=== PATIENT | female | born 1955 | race Caucasian/White ===

== ENCOUNTER → 2017-02-14 | Outpatient (CLI) | payer OTHER ==
[~2017-02-14] MED LIST: ALBU18002 INH; ALBU2SYP9 INH; BETA0.053 TOP; BIOT1CAP3 PO; CALC-354 PO; CETI10TA84 PO; CHOL100010 PO; CLON1TAB3 PO; CMD/25 PO; LOSA100T65 PO; METO25TA56 PO; MULT-730 PO; ONDA4TAB46 PO; PANT40TA PO; POTA10CA28 PO; RIBO1TAB4 PO; TRAM-10 PO
[2017-02-14 18:00] LABS: BASO % 0.5 %; BASO ABS # 0.03 K/uL (0-0.2); COMPLETE YES; EOS % 1.5 %; HEMATOCRIT 40.4 % (37-47); IG% 0.2 %; MEAN CELL VOLUME 96.2 fL (80-100); MEAN CORPUSCULAR HEMOGLOBIN 33.3 pg (25-34); MEAN CORPUSCULAR HGB CONC 34.7 g/dl (32-36); MEAN PLATELET VOLUME 10.5 fL (7.4-10.4); MONO % 11.9 %; NEUT % 43.9 %; PLATELET COUNT 281 K/uL (130-400); WHITE BLOOD COUNT 6.66 K/uL (4.8-10.8)
== END | disposition home or self-care (01) ==
LOC: C.LABMFLN 07:39
PROVIDERS: ATTEND Internal Medicine Cardiovascular Disease
DX: Z79.01 Long term (current) use of anticoagulants (principal)

== ENCOUNTER → 2017-04-02 | Outpatient (CLI) | payer OTHER ==
--- NOTE | 2017-04-04 08:21 | MAMMOGRAPHY REPORT ---
BILATERAL DIGITAL SCREENING MAMMOGRAM TOMOSYNTHESIS WITH CAD: 04/02/2017 CLINICAL HISTORY: Routine screening. Patient has no complaints. TECHNIQUE: Breast tomosynthesis in addition to standard 2D mammography was performed. Current study was also evaluated with a Computer Aided Detection (CAD) system. COMPARISON: Comparison is made to exams dated: 03/31/2016 mammogram, 03/30/2015 mammogram, 03/26/2014 philip mogram, and 03/24/2013 mammogram - [facility]. BREAST COMPOSITION: There are scattered areas of fibroglandular density in both breasts. FINDINGS: There is a grouping of linear microcalcifications in the lower inner quadrant of the right breast, for which additional spot magnification views are recommended. A lobulated, partially circumscribed, 8 mm mass in the anterior left breast has been present on prior mammograms dating back to at least 03/09/2010 and does not appear significantly changed in size, mos t likely a benign cyst or fibroadenoma. No other suspicious mass, architectural distortion or cluster of microcalcifications is seen. IMPRESSION: ACR BI-RADS CATEGORY 0: INCOMPLETE EVALUATION: NEED ADDITIONAL IMAGING EVALUATION The linear microcalcifications in the lower inner right breast need additional evaluation. The patient will be called to schedule an appointment. Approximately 10% of breast cancers are not detected with mammography. A negative mammographic report should not delay biopsy if a clinically suggestive mass is present. Radha Horner M.D. ay/:04/03/2017 17:54:39 [employer] Manager: Gabby EDWARD(Garett)(Leslie), [facility] letter sent: Addl Imaging 0 BI-RADS Code: ACR BI-RADS Category 0: Incomplete Evaluation: Need Additional Imaging Evaluation
== END | disposition home or self-care (01) ==
LOC: C.MAMM 16:13
PROVIDERS: ATTEND Family Medicine
DX: Z12.31 Encounter for screening mammogram for malignant neoplasm of breast (principal); R92.0 Mammographic microcalcification found on diagnostic imaging of breast

== ENCOUNTER → 2017-04-10 | Outpatient (CLI) | payer OTHER ==
[2017-04-10 17:45] LABS: BASO % 0.4 %; BASO ABS # 0.03 K/uL (0-0.2); COMPLETE YES; EOS % 0.7 %; HEMATOCRIT 43.6 % (37-47); IG% 0.1 %; LYMPH % 39.6 %; LYMPH ABS # 2.95 K/uL (1.2-3.4); MEAN CELL VOLUME 97.1 fL (80-100); MEAN CORPUSCULAR HEMOGLOBIN 32.7 pg (25-34); MEAN CORPUSCULAR HGB CONC 33.7 g/dl (32-36); MEAN PLATELET VOLUME 10.3 fL (7.4-10.4); MONO % 10.1 %; NEUT % 49.1 %; PLATELET COUNT 268 K/uL (130-400); RED BLOOD COUNT 4.49 M/uL (4.2-5.4); WHITE BLOOD COUNT 7.45 K/uL (4.8-10.8)
[2017-04-10 18:06] LABS: BLOOD UREA NITROGEN 17 mg/dl (7-18); BUN/CREATININE RATIO 14.3 (10-20); CALCIUM 9.5 mg/dl (8.5-10.1); CARBON DIOXIDE 30 mmol/L (21-32); CHLORIDE 105 mmol/L (98-107); GLUCOSE 81 mg/dl (70-99); MAGNESIUM 2.3 mg/dl (1.8-2.4); PHOSPHORUS 3.3 mg/dl (2.5-4.9); POTASSIUM 4.1 mmol/L (3.5-5.1); SODIUM 142 mmol/L (136-145)
== END | disposition home or self-care (01) ==
LOC: C.LABMFLN 15:25
PROVIDERS: ATTEND Family Medicine
DX: R25.2 Cramp and spasm (principal)

== ENCOUNTER → 2017-04-12 | Outpatient (CLI) | payer OTHER ==
--- NOTE | 2017-04-12 13:39 | MAMMOGRAPHY REPORT ---
UNILATERAL RIGHT DIGITAL DIAGNOSTIC MAMMOGRAM: 04/12/2017 CLINICAL HISTORY: Callback from screening mammogram for right breast calcifications. TECHNIQUE: Spot magnification right cc and ML views were obtained. COMPARISON: Comparison is made to exams dated: 04/02/2017 mammogram, 03/31/2016 mammogram, 03/30/2015 ma mmogram, 03/26/2014 mammogram, and 03/24/2013 mammogram - [facility]. BREAST COMPOSITION: There are scattered areas of fibroglandular density in the right breast. FINDINGS: Spot magnification views of the right breast demonstrate a 2.2 cm group of calcifications i n the right medial breast at approximately 3:00. The calcifications are coarse heterogeneous and are linear in distribution. While these could represent dystrophic calcifications, the calcifications a re indeterminate and stereotactic biopsy is recommended for further evaluation. IMPRESSION: ACR BI-RADS CATEGORY 4: SUSPICIOUS Grouped coarse heterogeneous calcifications in a linear distribution in the right 3:00 breast. The c alcifications are indeterminate and stereotactic biopsy is recommended for further evaluation. A phone call was made to the physician's office to confirm faxed results were received. The patient has been verbally notified of the results. She tent[facility] scheduled the biopsy [facility] The patient reports she is on Coumadin for atrial fibrillation; I will leave it up to the patient's prescribing physician if she can safely discontinue Coumadin prior to the procedure. Approximately 10% of breast cancers are not detected with mammography. A negative mammographic report should not delay biopsy if a clinically suggestive mass is present. Olga Up M.D. ah/:04/12/2017 11:20:57 Ramp Service Agent: Alisha KOHLI)(Leslie), [facility] letter sent: Abnormal 4/5 BI-RADS Code: ACR BI-RADS Category 4: Suspicious
== END | disposition home or self-care (01) ==
LOC: C.MAMM 10:55
PROVIDERS: ATTEND Family Medicine
DX: R92.1 Mammographic calcification found on diagnostic imaging of breast (principal); R92.0 Mammographic microcalcification found on diagnostic imaging of breast

== ENCOUNTER → 2017-04-12 | Outpatient (CLI) | payer OTHER | END | disposition home or self-care (01) | LOC: C.LAB1850 16:18 | PROVIDERS: ATTEND Family Medicine | DX: R11.0 Nausea (principal); R10.11 Right upper quadrant pain ==

== ENCOUNTER → 2017-04-17 | Outpatient (CLI) | payer OTHER ==
--- NOTE | 2017-04-17 08:28 | DIAGNOSTIC IMAGING REPORT ---
ULTRASOUND RIGHT UPPER QUADRANT ABDOMEN CLINICAL HISTORY: Nausea. Right upper quadrant abdominal pain. COMPARISON STUDY: Abdominal CT dated 05/13/2013. TECHNIQUE: Real-time, grayscale, and color flow sonography of the right upper quadrant of the abdomen was performed. Images are reviewed in the transverse and longitudinal planes. FINDINGS: Liver: The liver is top normal in size and demonstrates heterogeneously increased echotexture consistent with severe hepatic steatosis. There is no intrahepatic biliary ductal dilatation. The main portal vein is patent. Gallbladder: The gallbladder is surgically absent. The common bile duct measures up to 0.6 cm in diameter. Pancreas: Visualized portions of the pancreatic head and body are normal in appearance. Right kidney: Survey images of the right kidney demonstrate cortical atrophy. There is no hydronephrosis. Ascites: None. IMPRESSION: 1. No acute sonographic abnormality is identified. The gallbladder is surgically absent. 2. Severe hepatic steatosis. 3. The right kidney is atrophic. Electronically signed by: Jb Jacobo M.D. 04/17/2017 8:27 AM Dictated Date/Time: 04/17/2017 8:25 AM
== END | disposition home or self-care (01) ==
LOC: C.ULTR 07:49
PROVIDERS: ATTEND Registered Nurse
DX: R11.0 Nausea (principal); Z90.49 Acquired absence of other specified parts of digestive tract; R10.11 Right upper quadrant pain; K76.0 Fatty (change of) liver, not elsewhere classified

== ENCOUNTER → 2017-04-25 | Outpatient (CLI) | payer OTHER ==
--- NOTE | 2017-04-25 08:43 | Discharge Instructions ---
Discharge Instructions Procedure Procedure Date: Apr 25, 2017. Reason for visit: Right Calcifications. Discharge Discharge Date: Apr 25, 2017. Discharge Diagnosis: post right breast stereotactic guided biopsy Instructions Activity Recommendations: Additional Limitations (see below) Return to School/Work: no limitations Recommended Home Diet: No Limitations Provider Instructions: ACTIVITY RECOMMENDATIONS: * No lifting, pushing, pulling or exercising the affected side for three days. RETURN TO SCHOOL/WORK: * You may return to work/school after the procedure, but do not perform any strenuous activities for 24 to 48 hours. MEDICATIONS: * Tylenol (two 325 mg) every four to six hours if needed for mild pain (if not allergic to Tylenol). DIET: * Resume previous diet. SPECIAL CARE INSTRUCTIONS: * Keep biopsy site dry for 24 hours. May shower after 24 hours, but do not soak (bathe) incision. * May remove Tegaderm (plastic patch) tomorrow AFTER showering. * Leave the steri-strips on for one week. Allow the steri-strips to fall off by themselves. If not off after one week, you may remove them. You may place a Bandaid crosswise over the strips, if desired. * Apply ice 10 minutes on and 10 minutes off as needed. * Wear a bra at bedtime to sleep more comfortably for 2-3 days. * Your referring physician should have the results after approximately 5 to 7 business days. * Call for unusual bleeding, fever, drainage, etc or if you have any questions call [phone] during normal business hours or after hours call Dr Horner, . FOLLOW UP VISIT: Follow-up with Referring Physician as scheduled. Allergies Coded Allergies: Calcium Channel Blockers (Unverified Allergy, Severe, SWELLING, 07/27/16) Aspirin (Verified Allergy, Unknown, RASH, 07/27/16) Cephalexin (Verified Allergy, Unknown, URTICARIA, 07/27/16) Ciprofloxacin (Verified Allergy, Unknown, RASH, 07/27/16) Cyclobenzaprine (Verified Allergy, Unknown, CHEST PAIN, EDEMA, 07/27/16) Diltiazem (Verified Allergy, Unknown, 07/27/16) Ferrous Sulfate (Verified Allergy, Unknown, STOMACH CRAMPS, 07/27/16) Fish Oil (Verified Allergy, Unknown, NAUSEA, VOMITING STOMACH CRAMPS, 07/27) Flunisolide (Verified Allergy, Unknown, 07/27/16) Furosemide (Verified Allergy, Unknown, 07/27/16) Gabapentin (Verified Allergy, Unknown, PALPITATIONS, DIZZINESS, EDEMA, SOB , NAUSEA, 07/27/16) Hydrochlorothiazide (Verified Allergy, Unknown, RASH, 07/27/16) Hyoscyamine (Verified Allergy, Unknown, 07/27/16) Iodinated Contrast Media (Verified Allergy, Unknown, CATH DYE?, 07/27/16) Iron (Verified Allergy, Unknown, NAUSEA, VOMITING, STOMACH CRAMPS, 07/27/16 ) Lisinopril (Verified Allergy, Unknown, COUGH, SOB, 07/27/16) Metaxalone (Verified Allergy, Unknown, SEVERE NAUSEA AND VOMITING, 07/27/16 ) Milk (Verified Allergy, Unknown, LACTOSE INTOLERANCE, 07/27/16) Milnacipran (Verified Allergy, Unknown, INCREASED HEART RATE, 07/27/16) Nickel (Verified Allergy, Unknown, UNKNOWN, 07/27/16) Propranolol (Verified Allergy, Unknown, 07/27/16) Shellfish (Verified Allergy, Unknown, TONGUE SWELLS, 07/27/16) Sulfamethoxazole w/Trimethoprim (Verified Allergy, Unknown, BURNING SKIN, SOB, COUGH, ITCHING, 07/27/16) Sumatriptan (Verified Allergy, Unknown, CHEST PAIN, DIZZINESS, 07/27/16) Verapamil (Verified Allergy, Unknown, 07/27/16) Valdecoxib (Verified Adverse Reaction, Intermediate, heart raced, short of breath, 07/27/16) Ibuprofen (Verified Adverse Reaction, Mild, STOMACH UPSET- TAKES MOBIC AT HOME, 07/27/16) Uncoded Allergies: ADHESIVE TAPE (Allergy, Unknown, SKIN BLISTERS, 04/20/14) AROBID INHALER (Allergy, Unknown, TERRIBLE TASTE IN MOUTH, 10/05/15) BERELAN PM (Allergy, Unknown, EDEMA, SOB, DIZZY, 10/05/15) CLINDOMYCIN (Allergy, Unknown, RASH, 04/20/14) CONTRAST MEDIA (Allergy, Unknown, RASH, 04/20/14) FEATHERS (Allergy, Unknown, RASH, 10/05/15) LORCET HD (Allergy, Unknown, HEART RATE DROPPED, 04/20/14) NITROGLYCERIN SL (Allergy, Unknown, HEART RATE DROPPED, FELL DOWN, DIZZINESS, 04/20/14) SAVEOLA (Allergy, Unknown, HYPER, 10/05/15) Ricky Dejesus Recommendations: Call your doctor if: * Temperature above 101 degrees * Pain not relieved by pain medicine ordered * There is increased drainage or redness from any incision * You have any unanswered questions or concerns. Your Doctors Instructions noted above were prepared by provider Radha Horner. Patient Signature Section: Patient Instructions Signature Page Shanice Lynn Patient (or Guardian) Signature/Date: I have read and understand the instructions given to me by my caregivers. Caregiver/RN/Doctor Signature/Date: The above-named patient and/or guardian has received patient instructions on this date. + Original Patient Signature Page (only) stays with chart. Please make copy for patient.
--- NOTE | 2017-04-25 12:34 | MAMMOGRAPHY REPORT ---
UNILATERAL RIGHT DIGITAL DIAGNOSTIC MAMMOGRAM: 04/25/2017 CLINICAL HISTORY: Status post right breast stereotactic guided biopsy of linear microcalcifications i n the 3:00 breast. Please refer to the report from right breast stereotactic guided biopsy performed at the same time fo r full detail. IMPRESSION: POST PROCEDURE IMAGING FOR MARKER PLACEMENT Please refer to the report from right breast stereotactic guided biopsy performed at the same time fo r full detail. Approximately 10% of breast cancers are not detected with mammography. A negative mammographic report should not delay biopsy if a clinically suggestive mass is present. Radha Horner M.D. ay/:04/25/2017 08:45:15 Toy Maker: Sergio Rose RT(R)(M), [facility] BI-RADS Code: Post Procedure Imaging For Marker Placement
--- NOTE | 2017-04-25 12:34 | MAMMOGRAPHY REPORT ---
STEREOTACTIC GUIDED BIOPSY RIGHT BREAST: 04/25/2017 CLINICAL HISTORY: Indeterminate linear microcalcifications in the 3:00 right breast. Patient present s for stereotactic biopsy. COMPARISON: Comparison is made to exams dated: 04/12/2017 mammogram, 04/02/2017 mammogram, 03/31/2016 m ammogram, 03/30/2015 mammogram, 03/26/2014 mammogram, and 03/24/2013 mammogram - [facility]. PATIENT CONSENT: After explaining the risks, benefits and alternatives of the procedure to the patien t, informed consent was obtained both verbally and in writing. Specific risks include: Bleeding, inf ection, puncture of adjacent structure, pain, nontarget biopsy, sampling error, metal allergy and med ication reaction. PROCEDURE DESCRIPTION: A time-out was performed and the right breast was confirmed as the site of bio psy. The patient was placed prone on the stereotactic biopsy table and the breast was placed in media llateral compression. A airfield services officer image was obtained that demonstrated the clustered microcalcifications in question. They are amenable to sterotactic biopsy. Then +15 and -15 stereo pair images were ob tained. The calcifications were targeted utilizing the coordinates obtained by the computer. The ski n was prepped with Betadine. 1% Lidocaine with and without epinipherine was administered as local ane sthesia. A small skin incision was made. Through the incision, the needle was inserted to the depth determined by the computer. 7 samples were obtained using a [employer] 9-gauge vacuum-assisted biops y device. The specimen radiograph demonstrated several corporate sales representative microcalcifications, therefore, a metallic marker was placed at the biopsy site. There was no immediate complication. Hemostasis was achieved after several minutes of manual compression. The samples were sent to pathology in an appr opriately labeled container. Postprocedure CC and ML views of the right breast were obtained. There is a new dumbbell shaped met allic biopsy marker and a small, 18 x 21 mm hematoma along the tract of the biopsy. A few residual m icrocalcifications are seen at the biopsy site and the biopsy marker clip is displaced laterally by 1 6 mm on the CC projection, likely due to accordion effect. IMPRESSION: STEREOTACTIC GUIDED BIOPSY Status post stereotactic guided biopsy of linear microcalcifications in the 3:00 right breast, with b iopsy marker placed at the site. The patient will receive notification of the biopsy results from her referring physician. Radha Horner M.D. ay/:04/25/2017 09:18:01 Green Chain Offbearer: Sergio KOHLI)(Leslie), [facility]
== END | disposition home or self-care (01) ==
LOC: C.MAMM 07:48
PROVIDERS: ATTEND Family Medicine
DX: D24.1 Benign neoplasm of right breast (principal); R92.0 Mammographic microcalcification found on diagnostic imaging of breast

== ENCOUNTER → 2017-09-21 | Outpatient (CLI) | payer OTHER ==
[2017-09-21 13:13] LABS: HEMATOCRIT 42.8 % (37-47); MEAN CELL VOLUME 98.4 fL (80-100); MEAN CORPUSCULAR HEMOGLOBIN 33.8 pg (25-34); MEAN CORPUSCULAR HGB CONC 34.3 g/dl (32-36); MEAN PLATELET VOLUME 10.8 fL (7.4-10.4); PLATELET COUNT 253 K/uL (130-400); RED BLOOD COUNT 4.35 M/uL (4.2-5.4); WHITE BLOOD COUNT 5.35 K/uL (4.8-10.8)
[2017-09-21 13:17] LABS: BLOOD UREA NITROGEN 17 mg/dl (7-18); BUN/CREATININE RATIO 14.7 (10-20); CALCIUM 9.7 mg/dl (8.5-10.1); CARBON DIOXIDE 28 mmol/L (21-32); CHLORIDE 105 mmol/L (98-107); CREATININE 1.15 mg/dl (0.60-1.20); GLUCOSE 92 mg/dl (70-99); POTASSIUM 3.9 mmol/L (3.5-5.1); SODIUM 140 mmol/L (136-145)
== END | disposition home or self-care (01) ==
LOC: C.LABMFLN 09:20
PROVIDERS: ATTEND Physician Assistant
DX: Z51.81 Encounter for therapeutic drug level monitoring (principal); Z79.01 Long term (current) use of anticoagulants; I10 Essential (primary) hypertension

== ENCOUNTER → 2018-05-24 | Outpatient (CLI) | payer OTHER ==
[~2018-05-24] MED LIST changes: -CLON1TAB3 PO; +CLON1TAB5 PO
--- NOTE | 2018-05-27 15:11 | MAMMOGRAPHY REPORT ---
BILATERAL DIGITAL SCREENING MAMMOGRAM TOMOSYNTHESIS WITH CAD: 05/24/2018 CLINICAL HISTORY: Routine screening. Patient has no complaints. TECHNIQUE: The study was acquired using full field digital technology and interpreted from soft copy. Breast tomosynthesis in addition to standard 2D mammography was performed. Current study was also ev aluated with a Computer Aided Detection (CAD) system. COMPARISON: Comparison is made to exams dated: 04/25/2017 mammogram, 04/12/2017 mammogram, 04/02/2017 ma mmogram, 03/31/2016 mammogram, and 03/30/2015 mammogram - [facility]. BREAST COMPOSITION: There are scattered areas of fibroglandular density in both breasts. FINDINGS: No suspicious masses, calcifications, or areas of architectural distortion are noted in either breast . There has been no significant interval change compared to prior exams. A biopsy clip is again note d within the right medial breast at approximately 3:00 from prior benign stereotactic biopsy. Small mass within the left breast at approximately 12:00 is stable dating back to at least the 2009 exam. IMPRESSION: ACR BI-RADS CATEGORY 2: BENIGN There is no mammographic evidence of malignancy. A 1 year screening mammogram is recommended.( 019) The patient will receive written notification of the results. Some breast cancers are not detected with mammography. A negative mammographic report should not marty y biopsy if a clinically suggestive mass is present. Olga Up M.D. /:05/24/2018 15:57:35 Adjunct Professor Of [employer] History: Gisella Nolan, [facility] letter sent: Normal 1/2 BI-RADS Code: ACR BI-RADS Category 2: Benign
== END | disposition home or self-care (01) ==
LOC: C.MAMM 15:25
PROVIDERS: ATTEND Family Medicine
DX: Z12.31 Encounter for screening mammogram for malignant neoplasm of breast (principal)